=== PATIENT | female | born 1975 | race American Indian/Alaskan Native ===

== ENCOUNTER 2021-01-20 12:15 | Outpatient (CLI) | payer BC ==
--- NOTE | 2021-01-20 13:34 | Vascular Lab Report ---
DUPLEX DOPPLER LOWER EXTREMITY VEINS, LEFT INDICATION: PAIN IN LIMB,HAND,FOOT. TECHNIQUE: Duplex doppler imaging was performed through the veins of the left lower extremity using venous compression and other maneuvers. COMPARISON: No relevant prior imaging study available. FINDINGS: Left Common femoral vein: Negative. Left Superficial femoral vein: Negative. Left Popliteal vein: Negative. Left Calf veins: Negative. Additional findings: None. IMPRESSION: No sonographic evidence for DVT in the left lower extremity. Signer Name: Marcos Pringle Jr, MD Signed: 01/20/2021 1:29 PM Workstation Name: [id number]
== END 2021-01-20 12:16 | disposition home or self-care (01) ==
LOC: VAS 12:15
PROVIDERS: ATTEND Podiatrist Foot & Ankle Surgery
DX: M79.89 Other specified soft tissue disorders (principal); M79.662 Pain in left lower leg